=== PATIENT | female | born 1995 | race Caucasian/White ===

== ENCOUNTER 2016-11-11 04:01 | Emergency (ER) | payer SELFPAY ==
[~2016-11-11] VITALS: Ht 167.6 cm; Wt 60.0 kg
[2016-11-11 04:04] VITALS: BP 124/81; PULSE 137; RESP 16; TEMP 99.3; O2SAT 99
--- NOTE | 2016-11-11 04:22 | PD ---
HPI Chief Complaint: Abdominal Pain Time Seen by Provider: 04:18 Travel History International Travel<30 days: No Contact w/Intl Traveler<30days: No Traveled to known affect area: No History of Present Illness HPI 20-year-old female with previous history of cervicitis, presents to the ER today because she states that she had been sexually active with no protection recently and has had 5 days history of lower abdominal pain with whitish clear vaginal discharge. She states it is foul-smelling. She denies any fevers, nausea, vomiting, or any other symptoms. She states her pain is currently a 5 out of 10. Modifying Factors: None Associated Signs & Symptoms: Pelvic pains and vaginal discharge Risk Factors: Previous cervicitis, unprotected sex PFSH Past Medical History Medical History: Denies Significant Hx Diminished Hearing: No Tetanus Vaccination: Unknown Influenza Vaccination: No ?: Not LMP: LAST WEEK Past Surgical History Surgical History: No Previous Surgery Social History Alcohol Use: No Tobacco Use: No Substance Use: No Allergies-Medications (Allergen,Severity, Reaction): Coded Allergies: No Known Allergies (Unverified , 11/11/16) Reported Meds & Prescriptions Reported Meds & Active Scripts Active No Active Prescriptions or Reported Medications Review of Systems Except as stated in HPI: all other systems reviewed are Neg Physical Exam Narrative GENERAL: Well-developed young white female patient currently in mild distress. Awake and oriented 3. SKIN: Focused skin assessment warm/dry. HEAD: Atraumatic. Normocephalic. EYES: Pupils equal and round. No scleral icterus. No injection or drainage. ENT: No nasal bleeding or discharge. Mucous membranes pink and moist. NECK: Trachea midline. No JVD. CARDIOVASCULAR: Regular rate and rhythm. No murmur appreciated. RESPIRATORY: No accessory muscle use. Clear to auscultation. Breath sounds equal bilaterally. GASTROINTESTINAL: Abdomen soft, lower abdominal and pelvic tenderness without guarding or rebound, nondistended. Hepatic and splenic margins not palpable. GENITOURINARY: Normal external genitalia without lesions or erythema. Vaginal vault with small amount of blood and notable for full me whitish drainage. Cervical os was closed. Positive cervical motion tenderness. MUSCULOSKELETAL: No obvious deformities. No clubbing. No cyanosis. No edema. NEUROLOGICAL: Awake and alert. No obvious cranial nerve deficits. Motor grossly within normal limits. Normal speech. PSYCHIATRIC: Appropriate mood and affect; insight and judgment normal. Data Data Last Documented VS Vital Signs Date Time Temp Pulse Resp B/P Pulse Ox O2 Delivery O2 Flow Rate FiO2 11/11/16 04:33 73 20 124/71 11/11/16 04:04 99.3 99 Room Air Orders Complete Blood Count With Diff (11/11/16 04:18) Comprehensive Metabolic Panel (11/11/16 04:18) Gc And Chlamydia Pcr (11/11/16 04:18) Wet Prep Profile (11/11/16 04:18) Urinalysis - C+S If Indicated (11/11/16 04:18) Iv Access Insert/Monitor (11/11/16 04:18) Ceftriaxone Inj (Rocephin Inj) (11/11/16 04:30) Azithromycin Powd Pack (Zithromax Powd P (11/11/16 04:30) Ondansetron Inj (Zofran Inj) (11/11/16 04:30) Metronidazole (Flagyl) (11/11/16 04:30) Ed Urine Pregnancytest Poc (11/11/16 04:18) Labs Laboratory Tests Test 11/11/16 11/11/16 11/11/16 04:15 04:20 04:25 Urine Color YELLOW Urine Turbidity HAZY Urine pH 6.0 Urine Specific [place] 1.033 Urine Protein 30 mg/dL Urine Glucose (UA) NEG mg/dL Urine Ketones TRACE mg/dL Urine Occult Blood NEG Urine Nitrite NEG Urine Bilirubin NEG Urine Urobilinogen 2.0 MG/DL Urine Leukocyte Esterase SMALL Urine RBC 2 /hpf Urine WBC 4 /hpf Urine Transitional Epithelial <1 /hpf Cells Urine Mucus MANY /lpf Microscopic Urinalysis Comment CULT NOT INDICATED Clue Cells (Wet Prep) NONE SEEN Vaginal Trichomonas (Wet Prep) PRESENT Vaginal Yeast (Wet Prep) NONE SEEN White Blood Count 14.1 TH/MM3 Red Blood Count 3.88 MIL/MM3 Hemoglobin 11.0 GM/DL Hematocrit 32.3 % Mean Corpuscular Volume 83.3 FL Mean Corpuscular Hemoglobin 28.3 PG Mean Corpuscular Hemoglobin 34.0 % Concent Red Cell Distribution Width 14.0 % Platelet Count 351 TH/MM3 Mean Platelet Volume 6.8 FL Neutrophils (%) (Auto) 71.4 % Lymphocytes (%) (Auto) 18.6 % Monocytes (%) (Auto) 9.3 % Eosinophils (%) (Auto) 0.1 % Basophils (%) (Auto) 0.6 % Neutrophils # (Auto) 10.1 TH/MM3 Lymphocytes # (Auto) 2.6 TH/MM3 Monocytes # (Auto) 1.3 TH/MM3 Eosinophils # (Auto) 0.0 TH/MM3 Basophils # (Auto) 0.1 TH/MM3 CBC Comment DIFF FINAL Differential Comment Sodium Level 137 MEQ/L Potassium Level 3.8 MEQ/L Chloride Level 103 MEQ/L Carbon Dioxide Level 24.6 MEQ/L Anion Gap 9 MEQ/L Blood Urea Nitrogen 14 MG/DL Creatinine 0.88 MG/DL Estimat Glomerular Filtration 82 ML/MIN Rate Random Glucose 99 MG/DL Calcium Level 8.7 MG/DL Total Bilirubin 0.5 MG/DL Aspartate Amino Transf 28 U/L (AST/SGOT) Alanine Aminotransferase 25 U/L (ALT/SGPT) Alkaline Phosphatase 82 U/L Total Protein 8.7 GM/DL Albumin 3.4 GM/DL MDM Medical Decision Making Medical Screen Exam Complete: Yes Emergency Medical Condition: Yes Medical Record Reviewed: Yes Interpretation(s) Laboratory Tests Test 11/11/16 11/11/16 11/11/16 04:15 04:20 04:25 Urine Turbidity HAZY (CLEAR) Urine Protein 30 mg/dL (NEG-TRACE) Urine Ketones TRACE mg/dL (NEG) Urine Leukocyte Esterase SMALL (NEG) Urine Mucus MANY /lpf (OCC) Vaginal Trichomonas (Wet Prep) PRESENT (NONE) White Blood Count 14.1 TH/MM3 (4.0-11.0) Red Blood Count 3.88 MIL/MM3 (4.00-5.30) Hemoglobin 11.0 GM/DL (11.6-15.3) Hematocrit 32.3 % (35.0-46.0) Mean Platelet Volume 6.8 FL (7.0-11.0) Neutrophils (%) (Auto) 71.4 % (16.0-70.0) Monocytes (%) (Auto) 9.3 % (0.0-8.0) Neutrophils # (Auto) 10.1 TH/MM3 (1.8-7.7) Monocytes # (Auto) 1.3 TH/MM3 (0-0.9) Estimat Glomerular Filtration 82 ML/MIN (>89) Rate Total Protein 8.7 GM/DL (6.4-8.2) Differential Diagnosis UTI versus cervicitis versus PID Narrative Course Pelvic exam is concerning for STD, patient was given ceftriaxone, Zithromax, and Flagyl in the ER. Her wet prep shows Trichomonas. At this point, patient' s partner will also need to be treated. She should follow-up with primary care physician and [facility] as needed. Return for any worsening in symptoms as needed. The plan has been discussed with the patient and she states understanding. Diagnosis Primary Impression: Cervicitis Additional Impression: Trichomonas vaginitis Scripts No Active Prescriptions or Reported Meds Disposition: DISCHARGE HOME Condition: Stable Nita Boyd MD Nov 11, 2016 04:22
[2016-11-11] MEDS ORDERED: cefTRIAXone INJ 1,000 MG in SODIUM CHLORIDE 0.9% INJ 100 ML IV ONE (04:30)
[2016-11-11] MEDS ORDERED: metroNIDAZOLE 500 MG TAB PO ONE (04:30)
[2016-11-11] MEDS ORDERED: ONDANSETRON HCL 4 MG/2 ML VIAL IVP ONE (04:30)
[2016-11-11] MEDS ORDERED: AZITHROMYCIN PWD FOR SUSP 1 GM PACKET PO ONE (04:30)
[2016-11-11 04:33] VITALS: BP 124/71; PULSE 73; RESP 20
[2016-11-11 04:40] LABS: AUTOMATED NEUTROPHIL # 10.1 TH/MM3 (1.8-7.7); BASOPHIL # 0.1 TH/MM3 (0-0.2); BASOPHIL % 0.6 % (0.0-2.0); EOSINOPHIL % 0.1 % (0.0-4.0); HEMATOCRIT 32.3 % (35.0-46.0); HEMO FLAGS DIFF FINAL; LYMPH % 18.6 % (9.0-44.0); LYMPHOCYTE # 2.6 TH/MM3 (1.0-4.8); MEAN CELL VOLUME 83.3 FL (80.0-100.0); MEAN CORPUSCULAR HEMOGLOBIN 28.3 PG (27.0-34.0); MONO % 9.3 % (0.0-8.0); NEUT % 71.4 % (16.0-70.0); PLATELET COUNT 351 TH/MM3 (150-450); RED BLOOD COUNT 3.88 MIL/MM3 (4.00-5.30); WHITE BLOOD COUNT 14.1 TH/MM3 (4.0-11.0)
[2016-11-11 04:59] LABS: ALT (GPT) 25 U/L (9-42); ANION GAP 9 MEQ/L (5-15); AST (GOT) 28 U/L (16-38); BICARBONATE 24.6 MEQ/L (21.0-32.0); BLOOD UREA NITROGEN 14 MG/DL (7-18); CHLORIDE 103 MEQ/L (98-107); GLOMERULAR FILTRATION RATE 82 ML/MIN (>89); POTASSIUM 3.8 MEQ/L (3.5-5.1); SODIUM (NA) 137 MEQ/L (136-145)
[2016-11-11 05:01] LABS: ALKALINE PHOSPHATASE 82 U/L (45-117); TOTAL BILIRUBIN ADULT 0.5 MG/DL (0.2-1.0)
[2016-11-11 05:20] LABS: BLOOD, URINE NEG (NEG); COMMENT (UR) CULT NOT INDICATED; CULTURE IF INDICATED CULT NOT INDICATED; GLUCOSE,URINE NEG (NEG); KETONE, URINE TRACE mg/dL (NEG); MUCUS URINE MANY /lpf (OCC); NITRITE,URINE NEG (NEG); TRANSITIONAL EPI CELLS, URINE <1 /hpf; URINE COLOR YELLOW (YELLW/STRAW)
[2016-11-11 06:29] LABS: CHLAMYDIA PCR DETECTED (NOT DETECT); NEISSERIA PCR DETECTED (NOT DETECT)
== END 2016-11-11 06:45 | disposition home or self-care (01) ==
LOC: NEPE 04:01
DX: N72 Inflammatory disease of cervix uteri (principal); N76.0 Acute vaginitis
CPT/HCPCS: 80053; 81001; 84703; 85025; 87210; 87491; 87591; 96374; 96375; 99284; J0696; J2405

== ENCOUNTER 2017-02-20 09:11 | Emergency (ER) | payer SELFPAY ==
[2017-02-20 09:19] VITALS: BP 103/53; PULSE 107; RESP 20; TEMP 98.2; O2SAT 96
--- NOTE | 2017-02-20 09:38 | PD ---
HPI Chief Complaint: Skin Problem Time Seen by Provider: 09:22 Travel History International Travel<30 days: No Contact w/Intl Traveler<30days: No Traveled to known affect area: No History of Present Illness HPI The patient was seen and examined in the presence of the nurse. This patient complains of infected lesion on her right buttock. Duration 3 days. Severity is moderate. She denies fever. There is no active drainage. No injury. No alleviating factors. Pain is exacerbated with palpation. She denies any medical problems. Patient initially denied but now admits to IV drug abuse. She injects heroin in the last was 4 days ago. This is an exacerbating factor. She denies shaking chills. PFSH Past Medical History Diminished Hearing: No ?: Not Social History Alcohol Use: No Tobacco Use: No Substance Use: No Allergies-Medications (Allergen,Severity, Reaction): Coded Allergies: No Known Allergies (Unverified , 02/20/17) Reported Meds & Prescriptions Reported Meds & Active Scripts Active No Active Prescriptions or Reported Medications Review of Systems General / Constitutional: No: Fever Eyes: No: Visual changes HENT: No: Headaches Cardiovascular: No: Chest Pain or Discomfort Respiratory: No: Shortness of Breath Gastrointestinal: No: Abdominal Pain Genitourinary: No: Dysuria Musculoskeletal: Positive: Pain Skin: No Rash Neurologic: No: Weakness Psychiatric: No: Depression Endocrine: No: Polydipsia Hematologic/Lymphatic: No: Easy Bruising Physical Exam Narrative GENERAL: Well-nourished, well-developed patient in no apparent distress. SKIN: Focused skin assessment reveals no rash and nodules. Skin is Warm and dry. HEAD: Atraumatic. Normocephalic. EYES: Pupils equal and round. No scleral icterus. No injection or drainage. ENT: No nasal bleeding or discharge. Mucous membranes pink and moist. NECK: Trachea midline. No JVD. CARDIOVASCULAR: Regular rate and rhythm. No murmur appreciated. RESPIRATORY: No accessory muscle use. Clear to auscultation. Breath sounds equal bilaterally. GASTROINTESTINAL: Abdomen soft, non-tender, nondistended. Hepatic and splenic margins not palpable. MUSCULOSKELETAL: No obvious deformities. No clubbing. No cyanosis. No edema. NEUROLOGICAL: Awake and alert. No obvious cranial nerve deficits. Motor grossly within normal limits. Normal speech. PSYCHIATRIC: Appropriate mood and affect; insight and judgment normal. Buttock: Right buttock has a tender erythematous indurated area in the center of it. Is no active drainage or fluctuance. There is a scabbed area in the center. Data Data Last Documented VS Vital Signs Date Time Temp Pulse Resp B/P (MAP) Pulse Ox O2 Delivery O2 Flow Rate FiO2 02/20/17 09:19 98.2 107 20 103/53 (70) 96 Orders Orders Iv Access Insert/Monitor (02/20/17 09:34) Complete Blood Count With Diff (02/20/17 09:34) Basic Metabolic Panel (Bmp) (02/20/17 09:34) Vancomycin Inj (Vancomycin Inj) (02/20/17 09:45) Ondansetron Inj (Zofran Inj) (02/20/17 09:45) Morphine Inj (Morphine Inj) (02/20/17 09:45) Labs Laboratory Tests Test 02/20/17 09:40 White Blood Count 18.4 TH/MM3 Red Blood Count 4.14 MIL/MM3 Hemoglobin 12.0 GM/DL Hematocrit 35.1 % Mean Corpuscular Volume 84.8 FL Mean Corpuscular Hemoglobin 29.0 PG Mean Corpuscular Hemoglobin Concent 34.2 % Red Cell Distribution Width 13.9 % Platelet Count 352 TH/MM3 Mean Platelet Volume 7.1 FL Neutrophils (%) (Auto) 73.3 % Lymphocytes (%) (Auto) 17.3 % Monocytes (%) (Auto) 6.1 % Eosinophils (%) (Auto) 0.9 % Basophils (%) (Auto) 2.4 % Neutrophils # (Auto) 13.5 TH/MM3 Lymphocytes # (Auto) 3.2 TH/MM3 Monocytes # (Auto) 1.1 TH/MM3 Eosinophils # (Auto) 0.2 TH/MM3 Basophils # (Auto) 0.4 TH/MM3 CBC Comment DIFF FINAL Differential Comment Blood Urea Nitrogen 10 MG/DL Creatinine 0.73 MG/DL Random Glucose 97 MG/DL Calcium Level 8.6 MG/DL Sodium Level 136 MEQ/L Potassium Level 4.2 MEQ/L Chloride Level 103 MEQ/L Carbon Dioxide Level 26.0 MEQ/L Anion Gap 7 MEQ/L Estimat Glomerular Filtration Rate 101 ML/MIN [facility] Medical Decision Making Medical Screen Exam Complete: Yes Emergency Medical Condition: Yes Medical Record Reviewed: Yes Differential Diagnosis Cellulitis, abscess, epidermoid cyst Narrative Course I have reviewed the patient's electronic medical record. Patient has a cellulitis of the right buttock. There is induration but no area seems amenable to incision and drainage at this time. No fluctuance or drainage so nothing to culture. IV placed I gave her 1 g IV vancomycin CBC shows leukocytosis of 18,000 Metabolic profile is normal I gave her a dose of morphine and Zofran for symptom relief Patient has significant infection of the right buttock. Also, she initially lied about it but now admits that she is a frequent IV drug abuser. She injects heroin frequently last was 4 days ago. Given her significant infection and IV drug abuse with tachycardia and leukocytosis I recommended admission for IV antibiotics and further evaluation as needed. Patient thought about it for a while and is declining my recommendation will sign out AGAINST MEDICAL ADVICE I've advised her to return if she worsens or changes her mind. I did prescribe her about 10 days of Bactrim DS and doxycycline even though she knows this is not as ideal as IV antibiotics. Some tramadol written for pain, she insists she'll take it only as prescribed Diagnosis Primary Impression: Cellulitis of buttock, right Additional Impressions: IV drug abuse Tachycardia Leukocytosis Qualified Codes: D72.829 - Elevated white blood cell count, unspecified Med/Other Pt SpecificInfo: Prescription(s) given Scripts Tramadol (Tramadol) 50 Mg Tab 50 MG PO Q6H Y for PAIN, #15 TAB 0 Refills Prov: Juan Antonio Otero MD 02/20/17 Doxycycline Hyclate (Doxycycline Hyclate) 100 Mg Cap 100 MG PO BID for Infection, #20 CAP 0 Refills Prov: Juan Antonio Otero MD 02/20/17 Sulfamethoxazole-Trimethoprim (Bactrim DS) 800-160 Mg Tab 1 TAB PO BID for Infection, #20 TAB 0 Refills Prov: Juan Antonio Otero MD 02/20/17 Disposition: 07 AGAINST MEDICAL ADVICE Juan Antonio Otero MD Feb 20, 2017 09:38
[2017-02-20] MEDS ORDERED: MORPHINE SULFATE 4 MG/ML INJ IV PUSH ONE (09:45)
[2017-02-20] MEDS ORDERED: VANCOMYCIN INJ 1,000 MG in SODIUM CHLOR 0.9% 250 ML INJ 250 ML IV ONE (09:45)
[2017-02-20] MEDS ORDERED: ONDANSETRON HCL 4 MG/2 ML VIAL IVP ONE (09:45)
[2017-02-20 09:53] LABS: AUTOMATED NEUTROPHIL # 13.5 TH/MM3 (1.8-7.7); BASOPHIL # 0.4 TH/MM3 (0-0.2); BASOPHIL % 2.4 % (0.0-2.0); EOSINOPHIL # 0.2 TH/MM3 (0-0.4); EOSINOPHIL % 0.9 % (0.0-4.0); HEMATOCRIT 35.1 % (35.0-46.0); HEMO FLAGS DIFF FINAL; LYMPH % 17.3 % (9.0-44.0); LYMPHOCYTE # 3.2 TH/MM3 (1.0-4.8); MEAN CELL VOLUME 84.8 FL (80.0-100.0); MEAN CORPUSCULAR HGB CONC 34.2 % (32.0-36.0); MONO % 6.1 % (0.0-8.0); NEUT % 73.3 % (16.0-70.0); PLATELET COUNT 352 TH/MM3 (150-450); RED BLOOD COUNT 4.14 MIL/MM3 (4.00-5.30); RED CELL DISTRIBUTION WIDTH 13.9 % (11.6-17.2); WHITE BLOOD COUNT 18.4 TH/MM3 (4.0-11.0)
[2017-02-20 10:11] LABS: POTASSIUM 4.2 MEQ/L (3.5-5.1)
[2017-02-20] MEDS ORDERED: DOXY100C PO (10:39)
[2017-02-20] MEDS ORDERED: TRAM50TA PO (10:39)
[2017-02-20] MEDS ORDERED: BACT800T5 PO (10:39)
== END 2017-02-20 11:37 | disposition left against medical advice (07) ==
LOC: PHEFT 09:11
DX: L03.317 Cellulitis of buttock (principal)
CPT/HCPCS: 80048; 85025; 96365; 96375; 99284; J2270; J2405; J3370; J7050